=== PATIENT | female | born 1955 | race Caucasian/White ===

== ENCOUNTER 2021-06-16 08:47 | Day surgery (SDC) | payer OTHER ==
[2021-06-15 13:40] LABS: COVID AG,FIA SOURCE NASAL SWAB
[~2021-06-16] VITALS: Ht 149.9 cm; Wt 59.1 kg
[~2021-06-16 08:47] MED LIST: ATOR40TA28 PO; METF-1211 PO; SITA100 PO
[2021-06-16] MEDS ORDERED: LIDOCAINE/PF 2% 5 ML VIAL IM ONE (08:48)
[2021-06-16] MEDS ORDERED: PROPOFOL 1% 20 ML VIAL IVP ONE (08:48)
[2021-06-16] MEDS ORDERED: SODIUM CHLORIDE 0.9% 1,000 ML IV ONE (09:00)
[2021-06-16 09:56] LABS: GLUCOMETER DEV NAME(LOC) SDS.; GLUCOSE,POINT OF CARE 111 MG/DL (70-110)
[2021-06-16] MEDS ORDERED: OXYGEN THERAPY IH SCH (20:00)
== END 2021-06-16 11:20 | disposition home or self-care (01) ==
LOC: SURGERY 08:47
PROVIDERS: ATTEND Specialist
DX: Z12.11 Encounter for screening for malignant neoplasm of colon (principal); K63.5 Polyp of colon; K57.30 Diverticulosis of large intestine without perforation or abscess without bleeding; K21.9 Gastro-esophageal reflux disease without esophagitis; E11.9 Type 2 diabetes mellitus without complications; E78.5 Hyperlipidemia, unspecified; J45.909 Unspecified asthma, uncomplicated; I69.354 Hemiplegia and hemiparesis following cerebral infarction affecting left non-dominant side; Z20.822 Contact with and (suspected) exposure to COVID-19; Z79.84 Long term (current) use of oral hypoglycemic drugs; Z79.899 Other long term (current) drug therapy; Z88.0 Allergy status to penicillin; Z83.3 Family history of diabetes mellitus
CPT/HCPCS: 45380; 82962; 87426; 88305; C1769; C9803; J2704; J3490